=== PATIENT | male | born 1965 | race African-American/Black ===

== ENCOUNTER 2021-06-16 16:04 | Inpatient (IN) | payer SELFPAY ==
[~2021-06-16] VITALS: Ht 177.8 cm; Wt 116.1 kg
[2021-06-16] MEDS ORDERED: SODIUM CHLORIDE 0.9% 1,000 ML IV ONE (16:30)
[2021-06-16 16:51] LABS: BASOPHILS % 0.3 % (0.0-2.0); HEMATOCRIT. 40.8 % (42.0-52.0); HEMOGLOBIN. 13.8 g/dL (14.0-18.0); LYMPHOCYTES % 10.1 % (20.0-50.0); MEAN CORPUSCULAR HEMOGLOBIN 31.5 pg (28.0-32.0); MEAN CORPUSCULAR VOLUME 93.1 fL (80.0-94.0); MONOCYTES % 12.2 % (2.0-8.0); NEUTROPHILS % 77.4 % (40.0-76.0); RED BLOOD CELL COUNT 4.39 mill/uL (4.7-6.1)
[2021-06-16 16:55] LABS: CHLORIDE 100 mEq/L (98-107)
[2021-06-16 16:57] LABS: BG BASE EXCESS -0.3 mmol/L (-2.0-2.0); BG CARBOXYHEMOGLOBIN 1.6 % (0.5-1.5); BG DEOXYHEMOGLOBIN 1.6 % (0.0-5.0); BG FRACTION INSPIRED OXYGEN 100; BG HCO3 ACT 23.4 mmol/L (22.0-26.0); BG METHEMOGLOBIN 0.3 % (0.0-1.5); BG OXYGEN SATURATION 98.4 % (92.0-98.5); BG OXYHEMOGLOBIN 96.5 % (94.0-97.0); BG PCO2 35.5 mmHg (35.0-45.0); BG PH 7.437 (7.350-7.450); BG PO2 139.7 mmHg (75.0-100.0); BG SAMPLE SITE RIGHT RADIAL; BG TOTAL HEMOGLOBIN 13.5 g/dL (12.0-18.0); BG VENT MODE MASK - BIPAP
[2021-06-16] MEDS ORDERED: LORAZEPAM 2MG/ML CPJ IV ONE ×2 (17:00→17:30)
[2021-06-16] MEDS ORDERED: ASPIRIN 325MG EC TABLET PO ONE (17:30)
[2021-06-16 17:42] LABS: MEAN PLATELET VOLUME 9.7 fl (7.4-10.4); PLATELET 190 x1000/uL (130-400)
[2021-06-16] MEDS ORDERED: DEXAMETHASONE 4MG/ML 1ML VIAL IV ONE (18:30)
[2021-06-16] MEDS ORDERED: IPRATROPIUM/ALBUTEROL 0.5-3(2.5)MG/3ML NEB NEB PRN (21:00)
[2021-06-16] MEDS ORDERED: LORAZEPAM 2MG/ML CPJ IV PRN (21:00)
[2021-06-16] MEDS ORDERED: ONDANSETRON HCL 4MG/2ML INJ IV PRN (21:00)
[2021-06-16] MEDS ORDERED: CEFTRIAXONE 1 G PREMIX 50 ML IV SCH (21:00)
[2021-06-16] MEDS ORDERED: HYDROCODONE/ACETAMINOPHEN 5/325MG TABLET PO PRN (21:00)
[2021-06-16] MEDS ORDERED: MAGNESIUM/ALUMINUM HYDROXIDE/SIMETHICONE 30ML UDC PO PRN ×2 (21:00)
[2021-06-16] MEDS ORDERED: ENOXAPARIN 40MG/0.4ML SYR SUBCUT SCH (21:00)
[2021-06-16] MEDS ORDERED: DIPHENHYDRAMINE 50MG/ML VIAL IV PRN (21:00)
[2021-06-16] MEDS ORDERED: AZITHROMYCIN 500MG/250ML 250 ML IV SCH (21:30)
[2021-06-16] MEDS ORDERED: MVI, ADULT NO.1 10 ML, FOLIC ACID 1 MG, THIAMINE HCL 100 MG in SODIUM CHLORIDE 0.9% 1,0... IV SCH (22:00)
[2021-06-16] MEDS: ENOXAPARIN 30MG/0.3ML SYR SUBCUT SCH (22:13)
[2021-06-16 22:45] LABS: CREATINE KINASE MB FRACTION 2.4 ng/mL (0.5-3.6)
[2021-06-17] VITALS (39 sets, daily range): BP systolic 122–168; BP diastolic 79–124
[2021-06-17] MEDS ORDERED: NALOXONE HCL 0.4MG/ML VIAL IV PRN ×2 (02:45→03:45)
[2021-06-17 03:40] LABS: BG BASE EXCESS -1.2 mmol/L (-2.0-2.0); BG CARBOXYHEMOGLOBIN 0.6 % (0.5-1.5); BG DEOXYHEMOGLOBIN 4.5 % (0.0-5.0); BG FRACTION INSPIRED OXYGEN 100; BG HCO3 ACT 22.8 mmol/L (22.0-26.0); BG METHEMOGLOBIN 0.4 % (0.0-1.5); BG OXYGEN SATURATION 95.5 % (92.0-98.5); BG OXYHEMOGLOBIN 94.5 % (94.0-97.0); BG PCO2 35.8 mmHg (35.0-45.0); BG PH 7.421 (7.350-7.450); BG PO2 81.3 mmHg (75.0-100.0); BG SAMPLE SITE RIGHT RADIAL; BG TOTAL HEMOGLOBIN 13.6 g/dL (12.0-18.0); BG TOTAL RESPIRATORY RATE 66 b/min
[2021-06-17] MEDS: THIAMINE HCL 100MG TABLET PO SCH (08:33)
[2021-06-17] MEDS: FOLIC ACID 1MG TABLET PO SCH (08:33)
[2021-06-17] MEDS: ENOXAPARIN 30MG/0.3ML SYR SUBCUT SCH ×2 (08:34→20:44)
[2021-06-17] MEDS ORDERED: THIAMINE HCL 100MG TABLET PO SCH (09:00)
[2021-06-17] MEDS: DEXAMETHASONE 10 MG/ML VIAL IV SCH (11:17)
[2021-06-17] MEDS: MORPHINE SULFATE 2 MG/ML CPJ (NOT FOR IM USE) IV PRN (11:19)
[2021-06-17] MEDS: GUAIFENESIN 200MG/10ML SUGAR FREE UDC PO PRN ×2 (13:37→18:40)
[2021-06-17 15:42] LABS: HEMATOCRIT. 39.8 % (42.0-52.0); HEMOGLOBIN. 13.4 g/dL (14.0-18.0); MEAN CORPUSCULAR HEMOGLOBIN 31.3 pg (28.0-32.0); MEAN CORPUSCULAR VOLUME 93.1 fL (80.0-94.0); MEAN PLATELET VOLUME 9.2 fl (7.4-10.4); PLATELET 137 x1000/uL (130-400); RED BLOOD CELL COUNT 4.27 mill/uL (4.7-6.1); RED CELL DISTRIBUTION WIDTH 13.6 % (11.6-14.6)
[2021-06-17 15:55] LABS: CHLORIDE 107 mEq/L (98-107)
[2021-06-17 19:14] LABS: NUCLEATED RED BLOOD CELLS 1 /100 WBC; PLATELET ESTIMATE NORMAL
[2021-06-17] MEDS: CEFTRIAXONE 1,000 MG in DEXTROSE 5% WATER 50 ML IV SCH (20:43)
[2021-06-18] VITALS (44 sets, daily range): BP systolic 121–189; BP diastolic 51–121
[2021-06-18] MEDS: AZITHROMYCIN 500MG in DEXTROSE 5% WATER 250ML IV SCH ×2 (00:18→23:19)
[2021-06-18] MEDS: MORPHINE SULFATE 2 MG/ML CPJ (NOT FOR IM USE) IV PRN ×3 (03:42→12:54)
[2021-06-18 05:20] LABS: CHLORIDE 107 mEq/L (98-107); HEMATOCRIT. 36.9 % (42.0-52.0); HEMOGLOBIN. 12.5 g/dL (14.0-18.0); MEAN CORPUSCULAR HEMOGLOBIN 31.2 pg (28.0-32.0); MEAN CORPUSCULAR VOLUME 92.4 fL (80.0-94.0); MEAN PLATELET VOLUME 8.8 fl (7.4-10.4); PLATELET 116 x1000/uL (130-400); RED CELL DISTRIBUTION WIDTH 13.8 % (11.6-14.6)
[2021-06-18] MEDS: LORAZEPAM 2MG/ML CPJ IV PRN (05:26)
[2021-06-18 08:02] LABS: BG BASE EXCESS 0.1 mmol/L (-2.0-2.0); BG CARBOXYHEMOGLOBIN 0.3 % (0.5-1.5); BG DEOXYHEMOGLOBIN 8.4 % (0.0-5.0); BG HCO3 ACT 23.1 mmol/L (22.0-26.0); BG METHEMOGLOBIN 0.3 % (0.0-1.5); BG OXYGEN SATURATION 91.5 % (92.0-98.5); BG PCO2 32.7 mmHg (35.0-45.0); BG PH 7.467 (7.350-7.450); BG PO2 59.5 mmHg (75.0-100.0); BG SAMPLE SITE RIGHT RADIAL; BG TOTAL HEMOGLOBIN 13.6 g/dL (12.0-18.0); BG TOTAL RESPIRATORY RATE 55 b/min; BG VENT MODE MASK - BIPAP
[2021-06-18] MEDS: GUAIFENESIN 200MG/10ML SUGAR FREE UDC PO PRN (08:50)
[2021-06-18] MEDS: DEXAMETHASONE 10 MG/ML VIAL IV SCH (08:50)
[2021-06-18] MEDS: THIAMINE HCL 100MG TABLET PO SCH (08:50)
[2021-06-18] MEDS: FOLIC ACID 1MG TABLET PO SCH (08:50)
[2021-06-18] MEDS: ENOXAPARIN 30MG/0.3ML SYR SUBCUT SCH (08:52)
[2021-06-18] MEDS: AMLODIPINE 10MG TABLET PO SCH (08:56)
[2021-06-18 10:19] LABS: ATYPICAL LYMPHOCYTES 1; NUCLEATED RED BLOOD CELLS 4 /100 WBC; PLATELET ESTIMATE SLIGHTLY DECREASED
[2021-06-18 11:44] LABS: CLARITY URINE CLEAR (CLEAR); COLOR URINE DK YELLOW (YELLOW); KETONES URINE NEGATIVE (NEGATIVE); LEUKOCYTE ESTERASE URINE NEGATIVE (NEGATIVE); NITRITE URINE NEGATIVE (NEGATIVE); OCCULT BLOOD URINE 2+ (NEGATIVE); PROTEIN URINE 3+ (NEGATIVE); SPECIFIC GRAVITY URINE 1.024 (1.005-1.030)
[2021-06-18 12:00] LABS: METHADONE URINE SCREEN NEGATIVE (NEGATIVE); OPIATES URINE SCREEN PRESUMTIVE POSITIVE (NEGATIVE)
[2021-06-18 12:01] LABS: *AMPHETAMINES SCREEN URINE NEGATIVE (NEGATIVE); CANNABINOID URINE SCREEN NEGATIVE (NEGATIVE); PHENCYCLIDINE URINE SCREEN NEGATIVE (NEGATIVE)
[2021-06-18 12:02] LABS: *BENZODIAZEPINES SCREEN URINE NEGATIVE (NEGATIVE)
[2021-06-18 12:03] LABS: *BARBITURATES SCREEN URINE NEGATIVE (NEGATIVE); *COCAINE SCREEN URINE NEGATIVE (NEGATIVE)
[2021-06-18] MEDS: ZINC SULFATE 220 MG ( 50 ) CAPSULE PO SCH (17:51)
[2021-06-18] MEDS: MULTIVITAMINS,THER W-MINERALS TABLET PO SCH (17:51)
[2021-06-18] MEDS: ASCORBIC ACID 500 MG TABLET PO SCH (17:51)
[2021-06-18] MEDS: ENOXAPARIN 120MG/0.8ML SYR SUBCUT SCH (17:52)
[2021-06-18] MEDS: CEFTRIAXONE 1,000 MG in DEXTROSE 5% WATER 50 ML IV SCH (20:25)
[2021-06-18] MEDS: ACETAMINOPHEN 325MG TABLET PO PRN (20:26)
[2021-06-19] VITALS (40 sets, daily range): BP systolic 105–185; BP diastolic 60–144
[2021-06-19] MEDS: ACETAMINOPHEN 325MG TABLET PO PRN ×2 (03:44→13:58)
[2021-06-19 05:46] LABS: CHLORIDE 103 mEq/L (98-107)
[2021-06-19 05:49] LABS: BASOPHILS % 0.3 % (0.0-2.0); HEMATOCRIT. 35.8 % (42.0-52.0); HEMOGLOBIN. 12.2 g/dL (14.0-18.0); LYMPHOCYTES % 7.8 % (20.0-50.0); MEAN CORPUSCULAR HEMOGLOBIN 31.3 pg (28.0-32.0); MEAN CORPUSCULAR VOLUME 92.4 fL (80.0-94.0); MEAN PLATELET VOLUME 10.5 fl (7.4-10.4); MONOCYTES % 7.5 % (2.0-8.0); NEUTROPHILS % 84.4 % (40.0-76.0); PLATELET 116 x1000/uL (130-400); RED BLOOD CELL COUNT 3.88 mill/uL (4.7-6.1); RED CELL DISTRIBUTION WIDTH 13.6 % (11.6-14.6)
[2021-06-19] MEDS: GUAIFENESIN 200MG/10ML SUGAR FREE UDC PO PRN (07:35)
[2021-06-19] MEDS: FOLIC ACID 1MG TABLET PO SCH (09:39)
[2021-06-19] MEDS: MULTIVITAMINS,THER W-MINERALS TABLET PO SCH (09:39)
[2021-06-19] MEDS: HYDRALAZINE HCL 25MG TABLET PO SCH ×2 (09:39→20:47)
[2021-06-19] MEDS: AMLODIPINE 10MG TABLET PO SCH (09:39)
[2021-06-19] MEDS: ASCORBIC ACID 500 MG TABLET PO SCH (09:39)
[2021-06-19] MEDS: DEXAMETHASONE 10 MG/ML VIAL IV SCH (09:40)
[2021-06-19] MEDS: THIAMINE HCL 100MG TABLET PO SCH (09:40)
[2021-06-19] MEDS: ENOXAPARIN 120MG/0.8ML SYR SUBCUT SCH ×2 (09:40→20:47)
[2021-06-19] MEDS: ZINC SULFATE 220 MG ( 50 ) CAPSULE PO SCH (09:42)
[2021-06-19] MEDS: MORPHINE SULFATE 2 MG/ML CPJ (NOT FOR IM USE) IV PRN (10:39)
[2021-06-19] MEDS: CEFTRIAXONE 1,000 MG in DEXTROSE 5% WATER 50 ML IV SCH (20:46)
[2021-06-19] MEDS: AZITHROMYCIN 500MG in DEXTROSE 5% WATER 250ML IV SCH (23:36)
[2021-06-20] VITALS (48 sets, daily range): BP systolic 94–158; BP diastolic 53–100
[2021-06-20] MEDS: LORAZEPAM 2MG/ML CPJ IV PRN (03:45)
[2021-06-20] MEDS: ACETAMINOPHEN 325MG TABLET PO PRN (05:04)
[2021-06-20 05:24] LABS: HEMATOCRIT. 35.9 % (42.0-52.0); HEMOGLOBIN. 11.9 g/dL (14.0-18.0); MEAN CORPUSCULAR HEMOGLOBIN 30.8 pg (28.0-32.0); MEAN CORPUSCULAR VOLUME 92.5 fL (80.0-94.0); MEAN PLATELET VOLUME 11.2 fl (7.4-10.4); PLATELET 138 x1000/uL (130-400); RED BLOOD CELL COUNT 3.88 mill/uL (4.7-6.1); RED CELL DISTRIBUTION WIDTH 13.7 % (11.6-14.6)
[2021-06-20 05:34] LABS: INR 1.3; PROTHROMBIN TIME 13.3 sec (9.6-11.0)
[2021-06-20 05:38] LABS: CHLORIDE 106 mEq/L (98-107)
[2021-06-20] MEDS: ENOXAPARIN 120MG/0.8ML SYR SUBCUT SCH ×2 (08:21→21:26)
[2021-06-20] MEDS: HYDRALAZINE HCL 25MG TABLET PO SCH ×2 (08:22→21:27)
[2021-06-20] MEDS: THIAMINE HCL 100MG TABLET PO SCH (08:22)
[2021-06-20] MEDS: DEXAMETHASONE 10 MG/ML VIAL IV SCH (08:22)
[2021-06-20] MEDS: DOCUSATE SODIUM 100MG CAPSULE PO SCH ×2 (08:22→17:22)
[2021-06-20] MEDS: ASCORBIC ACID 500 MG TABLET PO SCH (08:22)
[2021-06-20] MEDS: MULTIVITAMINS,THER W-MINERALS TABLET PO SCH (08:22)
[2021-06-20] MEDS: AMLODIPINE 10MG TABLET PO SCH (08:23)
[2021-06-20] MEDS: FOLIC ACID 1MG TABLET PO SCH (08:23)
[2021-06-20] MEDS: ZINC SULFATE 220 MG ( 50 ) CAPSULE PO SCH (08:23)
[2021-06-20 10:17] LABS: PLATELET ESTIMATE NORMAL
[2021-06-20] MEDS: CEFTRIAXONE 1,000 MG in DEXTROSE 5% WATER 50 ML IV SCH (21:25)
[2021-06-20] MEDS: AZITHROMYCIN 500MG in DEXTROSE 5% WATER 250ML IV SCH (21:26)
[2021-06-21] VITALS (72 sets, daily range): BP systolic 73–204; BP diastolic 41–129
[2021-06-21 05:46] LABS: CHLORIDE 106 mEq/L (98-107)
[2021-06-21 05:57] LABS: HEMATOCRIT. 36.4 % (42.0-52.0); MEAN CORPUSCULAR HEMOGLOBIN 30.6 pg (28.0-32.0); MEAN CORPUSCULAR VOLUME 92.6 fL (80.0-94.0); MEAN PLATELET VOLUME 11.1 fl (7.4-10.4); PLATELET 189 x1000/uL (130-400); RED BLOOD CELL COUNT 3.93 mill/uL (4.7-6.1); RED CELL DISTRIBUTION WIDTH 13.9 % (11.6-14.6)
[2021-06-21] MEDS: ENOXAPARIN 120MG/0.8ML SYR SUBCUT SCH ×2 (08:34→23:01)
[2021-06-21] MEDS: ZINC SULFATE 220 MG ( 50 ) CAPSULE PO SCH (08:34)
[2021-06-21] MEDS: HYDRALAZINE HCL 25MG TABLET PO SCH ×2 (08:35→23:02)
[2021-06-21] MEDS: ASCORBIC ACID 500 MG TABLET PO SCH (08:35)
[2021-06-21] MEDS: DEXAMETHASONE 10 MG/ML VIAL IV SCH (08:35)
[2021-06-21] MEDS: DOCUSATE SODIUM 100MG CAPSULE PO SCH ×2 (08:35→17:00)
[2021-06-21] MEDS: THIAMINE HCL 100MG TABLET PO SCH (08:35)
[2021-06-21] MEDS: AMLODIPINE 10MG TABLET PO SCH (08:35)
[2021-06-21] MEDS: FOLIC ACID 1MG TABLET PO SCH (08:35)
[2021-06-21] MEDS: MULTIVITAMINS,THER W-MINERALS TABLET PO SCH (08:35)
[2021-06-21] MEDS ORDERED: MIDAZOLAM 100MG/100ML PMX 100 ML IV PRN (11:15)
[2021-06-21] MEDS: FENTANYL CITRATE/PF 2,500 MCG in SODIUM CHLORIDE 0.9% 200 ML IV PRN ×2 (11:50→19:23)
[2021-06-21] MEDS: MIDAZOLAM HCL 100 MG in SODIUM CHLORIDE 0.9% 100 ML IV PRN (11:51)
[2021-06-21] MEDS ORDERED: ALBUTEROL 6.7GM HFA INHALER ORI SCH (12:00)
[2021-06-21] MEDS: PROPOFOL 10MG/ML 100ML 100 ML IV SCH ×2 (12:28→14:15)
[2021-06-21] MEDS: PHENYLEPHRINE 100 MG in DEXT 5% WATER 240 ML IV PRN (15:26)
[2021-06-21 19:15] LABS: PLATELET ESTIMATE NORMAL
[2021-06-21] MEDS: CEFTRIAXONE 1,000 MG in DEXTROSE 5% WATER 50 ML IV SCH (23:02)
[2021-06-21] MEDS: AZITHROMYCIN 500MG in DEXTROSE 5% WATER 250ML IV SCH (23:02)
[2021-06-22] VITALS (95 sets, daily range): BP systolic 78–138; BP diastolic 24–81
[2021-06-22] MEDS: PHENYLEPHRINE 100 MG in DEXT 5% WATER 240 ML IV PRN ×3 (00:38→21:10)
[2021-06-22] MEDS: PROPOFOL 10MG/ML 100ML 100 ML IV SCH ×3 (02:32→10:22)
[2021-06-22] MEDS: FENTANYL CITRATE/PF 2,500 MCG in SODIUM CHLORIDE 0.9% 200 ML IV PRN ×3 (03:18→17:21)
[2021-06-22 05:53] LABS: CHLORIDE 109 mEq/L (98-107)
[2021-06-22 05:55] LABS: HEMATOCRIT. 36.3 % (42.0-52.0); HEMOGLOBIN. 11.7 g/dL (14.0-18.0); MEAN CORPUSCULAR HEMOGLOBIN 30.7 pg (28.0-32.0); MEAN CORPUSCULAR VOLUME 95.1 fL (80.0-94.0); MEAN PLATELET VOLUME 9.9 fl (7.4-10.4); PLATELET 243 x1000/uL (130-400); RED BLOOD CELL COUNT 3.82 mill/uL (4.7-6.1); RED CELL DISTRIBUTION WIDTH 14.4 % (11.6-14.6)
[2021-06-22 08:28] LABS: BG CARBOXYHEMOGLOBIN 1.1 % (0.5-1.5); BG DEOXYHEMOGLOBIN 3.1 % (0.0-5.0); BG FRACTION INSPIRED OXYGEN 100; BG HCO3 ACT 24.7 mmol/L (22.0-26.0); BG METHEMOGLOBIN 0.2 % (0.0-1.5); BG OXYGEN SATURATION 96.9 % (92.0-98.5); BG OXYHEMOGLOBIN 95.6 % (94.0-97.0); BG PCO2 50.2 mmHg (35.0-45.0); BG PO2 99.6 mmHg (75.0-100.0); BG SAMPLE SITE LEFT RADIAL; BG TOTAL HEMOGLOBIN 12.8 g/dL (12.0-18.0); BG VENT MODE VENT - AC
[2021-06-22] MEDS: AMLODIPINE 10MG TABLET PO SCH (09:00)
[2021-06-22] MEDS: HYDRALAZINE HCL 25MG TABLET PO SCH ×2 (09:00→21:08)
[2021-06-22] MEDS ORDERED: IPRATROPIUM/ALBUTEROL 0.5-3(2.5)MG/3ML NEB HHN PRN (09:30)
[2021-06-22] MEDS: DEXAMETHASONE 10 MG/ML VIAL IV SCH (09:54)
[2021-06-22] MEDS: MULTIVITAMINS,THER W-MINERALS TABLET PO SCH (09:54)
[2021-06-22] MEDS: ENOXAPARIN 120MG/0.8ML SYR SUBCUT SCH ×2 (09:54→21:08)
[2021-06-22] MEDS: FOLIC ACID 1MG TABLET PO SCH (09:54)
[2021-06-22] MEDS: DOCUSATE SODIUM 100MG CAPSULE PO SCH ×2 (09:54→17:20)
[2021-06-22] MEDS: ZINC SULFATE 220 MG ( 50 ) CAPSULE PO SCH (09:54)
[2021-06-22] MEDS: ASCORBIC ACID 500 MG TABLET PO SCH (09:54)
[2021-06-22] MEDS: THIAMINE HCL 100MG TABLET PO SCH (09:54)
[2021-06-22] MEDS: MIDAZOLAM HCL 100 MG in SODIUM CHLORIDE 0.9% 100 ML IV PRN (10:25)
[2021-06-22] MEDS ORDERED: IPRATROPIUM/ALBUTEROL 0.5-3(2.5)MG/3ML NEB HHN SCH (12:00)
[2021-06-22] MEDS ORDERED: CEFEPIME 1,000 MG in DEXTROSE 5% WATER 50 ML IV SCH ×2 (12:30→14:00)
[2021-06-22 13:04] LABS: PLATELET ESTIMATE NORMAL
[2021-06-22] MEDS: CEFEPIME 2,000 MG in DEXT 5% WATER 100 ML IV SCH (21:08)
[2021-06-22] MEDS: PROPOFOL 10MG/ML 100ML 100 ML IV PRN (22:37)
[2021-06-23] VITALS (95 sets, daily range): BP systolic 96–142; BP diastolic 53–87
[2021-06-23] MEDS: MIDAZOLAM HCL 100 MG in SODIUM CHLORIDE 0.9% 100 ML IV PRN ×2 (03:17→16:36)
[2021-06-23] MEDS: PROPOFOL 10MG/ML 100ML 100 ML IV PRN ×5 (03:18→23:07)
[2021-06-23] MEDS: FENTANYL CITRATE/PF 2,500 MCG in SODIUM CHLORIDE 0.9% 200 ML IV PRN ×3 (03:19→18:15)
[2021-06-23 05:19] LABS: HEMATOCRIT. 34.2 % (42.0-52.0); HEMOGLOBIN. 11.1 g/dL (14.0-18.0); MEAN CORPUSCULAR HEMOGLOBIN 30.5 pg (28.0-32.0); MEAN CORPUSCULAR VOLUME 94.2 fL (80.0-94.0); MEAN PLATELET VOLUME 10.3 fl (7.4-10.4); PLATELET 239 x1000/uL (130-400); RED BLOOD CELL COUNT 3.64 mill/uL (4.7-6.1); RED CELL DISTRIBUTION WIDTH 14.5 % (11.6-14.6)
[2021-06-23 05:20] LABS: CHLORIDE 110 mEq/L (98-107)
[2021-06-23] MEDS: CEFEPIME 2,000 MG in DEXT 5% WATER 100 ML IV SCH ×3 (06:50→22:07)
[2021-06-23] MEDS: ZINC SULFATE 220 MG ( 50 ) CAPSULE PO SCH (08:24)
[2021-06-23] MEDS: FOLIC ACID 1MG TABLET PO SCH (08:24)
[2021-06-23] MEDS: ASCORBIC ACID 500 MG TABLET PO SCH (08:24)
[2021-06-23] MEDS: MULTIVITAMINS,THER W-MINERALS TABLET PO SCH (08:24)
[2021-06-23] MEDS: DEXAMETHASONE 10 MG/ML VIAL IV SCH (08:24)
[2021-06-23] MEDS: DOCUSATE SODIUM 100MG CAPSULE PO SCH ×2 (08:24→17:26)
[2021-06-23] MEDS: THIAMINE HCL 100MG TABLET PO SCH (08:24)
[2021-06-23] MEDS: ENOXAPARIN 120MG/0.8ML SYR SUBCUT SCH ×2 (08:25→20:07)
[2021-06-23] MEDS: HYDRALAZINE HCL 25MG TABLET PO SCH (08:26)
[2021-06-23] MEDS: AMLODIPINE 10MG TABLET PO SCH (08:26)
[2021-06-23 09:24] LABS: NUCLEATED RED BLOOD CELLS 1 /100 WBC; PLATELET ESTIMATE NORMAL
[2021-06-23] MEDS ORDERED: IPRATROPIUM/ALBUTEROL 0.5-3(2.5)MG/3ML NEB HHN PRN (09:30)
[2021-06-23] MEDS ORDERED: BISACODYL 10MG SUPP PR PRN (09:45)
[2021-06-23 09:46] LABS: BG BASE EXCESS -0.9 mmol/L (-2.0-2.0); BG DEOXYHEMOGLOBIN 8.7 % (0.0-5.0); BG FRACTION INSPIRED OXYGEN 100; BG METHEMOGLOBIN 0.3 % (0.0-1.5); BG OXYGEN SATURATION 91.2 % (92.0-98.5); BG PCO2 46.8 mmHg (35.0-45.0); BG PH 7.346 (7.350-7.450); BG PO2 65.4 mmHg (75.0-100.0); BG SAMPLE SITE RIGHT RADIAL; BG TOTAL HEMOGLOBIN 12.4 g/dL (12.0-18.0); BG TOTAL RESPIRATORY RATE 31 b/min; BG VENT MODE VENT - AC
[2021-06-23] MEDS: PHENYLEPHRINE 100 MG in DEXT 5% WATER 240 ML IV PRN (10:31)
[2021-06-23] MEDS: IPRATROPIUM/ALBUTEROL 0.5-3(2.5)MG/3ML NEB HHN SCH ×3 (13:00→20:55)
[2021-06-23] MEDS ORDERED: LIDOCAINE HCL 1% 20ML VIAL (Pyxis) INJ ONE (14:10)
[2021-06-24] VITALS (92 sets, daily range): BP systolic 80–159; BP diastolic 47–80
[2021-06-24] MEDS: IPRATROPIUM/ALBUTEROL 0.5-3(2.5)MG/3ML NEB HHN SCH ×6 (00:45→20:21)
[2021-06-24] MEDS: MIDAZOLAM HCL 100 MG in SODIUM CHLORIDE 0.9% 100 ML IV PRN ×4 (00:45→22:29)
[2021-06-24] MEDS: PROPOFOL 10MG/ML 100ML 100 ML IV PRN ×8 (01:19→23:34)
[2021-06-24] MEDS ORDERED: ACETAMINOPHEN 650MG SUPP PR PRN (01:30)
[2021-06-24] MEDS: FENTANYL CITRATE/PF 2,500 MCG in SODIUM CHLORIDE 0.9% 200 ML IV PRN ×3 (01:31→18:09)
[2021-06-24 05:02] LABS: BG BASE EXCESS 0.4 mmol/L (-2.0-2.0); BG CARBOXYHEMOGLOBIN 0.9 % (0.5-1.5); BG DEOXYHEMOGLOBIN 10.5 % (0.0-5.0); BG FRACTION INSPIRED OXYGEN 100; BG HCO3 ACT 26.9 mmol/L (22.0-26.0); BG METHEMOGLOBIN 0.4 % (0.0-1.5); BG OXYGEN SATURATION 89.4 % (92.0-98.5); BG OXYHEMOGLOBIN 88.2 % (94.0-97.0); BG PCO2 51.6 mmHg (35.0-45.0); BG PH 7.335 (7.350-7.450); BG PO2 61.4 mmHg (75.0-100.0); BG SAMPLE SITE LEFT RADIAL; BG TOTAL HEMOGLOBIN 11.7 g/dL (12.0-18.0); BG TOTAL RESPIRATORY RATE 37 b/min; BG VENT MODE VENT - AC
[2021-06-24 05:16] LABS: HEMATOCRIT. 32.9 % (42.0-52.0); HEMOGLOBIN. 10.7 g/dL (14.0-18.0); MEAN CORPUSCULAR HEMOGLOBIN 30.6 pg (28.0-32.0); MEAN CORPUSCULAR VOLUME 93.8 fL (80.0-94.0); MEAN PLATELET VOLUME 10.6 fl (7.4-10.4); PLATELET 228 x1000/uL (130-400); RED BLOOD CELL COUNT 3.51 mill/uL (4.7-6.1); RED CELL DISTRIBUTION WIDTH 14.5 % (11.6-14.6)
[2021-06-24] MEDS ORDERED: VECURONIUM BROMIDE 10 MG/VIAL IV SCH (05:45)
[2021-06-24] MEDS: CEFEPIME 2,000 MG in DEXT 5% WATER 100 ML IV SCH ×3 (05:46→21:13)
[2021-06-24] MEDS: PHENYLEPHRINE 100 MG in DEXT 5% WATER 240 ML IV PRN (07:05)
[2021-06-24 08:07] LABS: BG BASE EXCESS -2.2 mmol/L (-2.0-2.0); BG CARBOXYHEMOGLOBIN 0.7 % (0.5-1.5); BG FRACTION INSPIRED OXYGEN 100; BG HCO3 ACT 26.6 mmol/L (22.0-26.0); BG METHEMOGLOBIN 0.7 % (0.0-1.5); BG OXYHEMOGLOBIN 96.6 % (94.0-97.0); BG PCO2 66.9 mmHg (35.0-45.0); BG PH 7.217 (7.350-7.450); BG PO2 139.6 mmHg (75.0-100.0); BG SAMPLE SITE LEFT RADIAL; BG TOTAL HEMOGLOBIN 11.7 g/dL (12.0-18.0); BG TOTAL RESPIRATORY RATE 31 b/min; BG VENT MODE VENT - AC
[2021-06-24] MEDS ORDERED: VECURONIUM BROMIDE 10 MG/VIAL IV NR (09:15)
[2021-06-24] MEDS: FOLIC ACID 1MG TABLET PO SCH (09:48)
[2021-06-24] MEDS: ENOXAPARIN 120MG/0.8ML SYR SUBCUT SCH ×2 (09:48→20:46)
[2021-06-24] MEDS: DEXAMETHASONE 10 MG/ML VIAL IV SCH (09:48)
[2021-06-24] MEDS: THIAMINE HCL 100MG TABLET PO SCH (09:49)
[2021-06-24] MEDS: DOCUSATE SODIUM 100MG CAPSULE PO SCH ×2 (09:49→17:00)
[2021-06-24] MEDS: ZINC SULFATE 220 MG ( 50 ) CAPSULE PO SCH (09:49)
[2021-06-24] MEDS: MULTIVITAMINS,THER W-MINERALS TABLET PO SCH (09:49)
[2021-06-24] MEDS: ASCORBIC ACID 500 MG TABLET PO SCH (09:49)
[2021-06-24 09:54] LABS: PLATELET ESTIMATE NORMAL
[2021-06-24 12:02] LABS: BG BASE EXCESS -2.5 mmol/L (-2.0-2.0); BG CARBOXYHEMOGLOBIN 0.5 % (0.5-1.5); BG DEOXYHEMOGLOBIN 1.7 % (0.0-5.0); BG HCO3 ACT 27.6 mmol/L (22.0-26.0); BG METHEMOGLOBIN 0.6 % (0.0-1.5); BG OXYGEN SATURATION 98.3 % (92.0-98.5); BG OXYHEMOGLOBIN 97.2 % (94.0-97.0); BG PCO2 79.6 mmHg (35.0-45.0); BG PH 7.158 (7.350-7.450); BG PO2 148.3 mmHg (75.0-100.0); BG SAMPLE SITE RIGHT FEMORAL; BG TOTAL HEMOGLOBIN 11.5 g/dL (12.0-18.0); BG VENT MODE VENT - AC
[2021-06-24 14:16] LABS: BG BASE EXCESS -1.8 mmol/L (-2.0-2.0); BG CARBOXYHEMOGLOBIN 0.2 % (0.5-1.5); BG DEOXYHEMOGLOBIN 0.7 % (0.0-5.0); BG FRACTION INSPIRED OXYGEN 100; BG HCO3 ACT 24.5 mmol/L (22.0-26.0); BG METHEMOGLOBIN 0.5 % (0.0-1.5); BG OXYGEN SATURATION 99.3 % (92.0-98.5); BG OXYHEMOGLOBIN 98.6 % (94.0-97.0); BG PCO2 48.1 mmHg (35.0-45.0); BG PH 7.324 (7.350-7.450); BG PO2 223.8 mmHg (75.0-100.0); BG SAMPLE SITE LEFT RADIAL; BG TOTAL HEMOGLOBIN 10.6 g/dL (12.0-18.0); BG TOTAL RESPIRATORY RATE 40 b/min; BG VENT MODE VENT- PRVC
[2021-06-24 14:31] LABS: CHLORIDE 110 mEq/L (98-107)
[2021-06-24] MEDS: METOCLOPRAMIDE HCL 10MG/2ML VIAL IV SCH (18:07)
[2021-06-25] VITALS (93 sets, daily range): BP systolic 87–119; BP diastolic 47–75
[2021-06-25] MEDS: IPRATROPIUM/ALBUTEROL 0.5-3(2.5)MG/3ML NEB HHN SCH ×6 (00:44→20:23)
[2021-06-25] MEDS: METOCLOPRAMIDE HCL 10MG/2ML VIAL IV SCH ×4 (01:18→17:56)
[2021-06-25] MEDS: FENTANYL CITRATE/PF 2,500 MCG in SODIUM CHLORIDE 0.9% 200 ML IV PRN ×3 (02:24→18:19)
[2021-06-25] MEDS: PROPOFOL 10MG/ML 100ML 100 ML IV PRN ×7 (02:59→23:15)
[2021-06-25] MEDS: MIDAZOLAM HCL 100 MG in SODIUM CHLORIDE 0.9% 100 ML IV PRN ×3 (05:03→20:13)
[2021-06-25] MEDS: CEFEPIME 2,000 MG in DEXT 5% WATER 100 ML IV SCH ×3 (05:28→23:14)
[2021-06-25 06:50] LABS: HEMATOCRIT. 27.6 % (42.0-52.0); HEMOGLOBIN. 9.1 g/dL (14.0-18.0); MEAN CORPUSCULAR HEMOGLOBIN 30.8 pg (28.0-32.0); MEAN CORPUSCULAR VOLUME 93.5 fL (80.0-94.0); MEAN PLATELET VOLUME 10.1 fl (7.4-10.4); PLATELET 244 x1000/uL (130-400); RED BLOOD CELL COUNT 2.95 mill/uL (4.7-6.1); RED CELL DISTRIBUTION WIDTH 14.6 % (11.6-14.6)
[2021-06-25] MEDS: PHENYLEPHRINE 100 MG in DEXT 5% WATER 240 ML IV PRN (07:00)
[2021-06-25] MEDS: ENOXAPARIN 120MG/0.8ML SYR SUBCUT SCH ×2 (08:12→21:51)
[2021-06-25] MEDS: DEXAMETHASONE 10 MG/ML VIAL IV SCH (08:13)
[2021-06-25] MEDS: FOLIC ACID 1MG TABLET PO SCH (08:14)
[2021-06-25] MEDS: ZINC SULFATE 220 MG ( 50 ) CAPSULE PO SCH (08:14)
[2021-06-25] MEDS: MULTIVITAMINS,THER W-MINERALS TABLET PO SCH (08:14)
[2021-06-25] MEDS: DOCUSATE SODIUM 100MG CAPSULE PO SCH ×2 (08:14→17:56)
[2021-06-25] MEDS: THIAMINE HCL 100MG TABLET PO SCH (08:14)
[2021-06-25] MEDS: ASCORBIC ACID 500 MG TABLET PO SCH (08:15)
[2021-06-25 09:25] LABS: BG BASE EXCESS -4.9 mmol/L (-2.0-2.0); BG CARBOXYHEMOGLOBIN 0.6 % (0.5-1.5); BG DEOXYHEMOGLOBIN 5.9 % (0.0-5.0); BG FRACTION INSPIRED OXYGEN 65; BG HCO3 ACT 21.2 mmol/L (22.0-26.0); BG METHEMOGLOBIN 0.4 % (0.0-1.5); BG OXYHEMOGLOBIN 93.1 % (94.0-97.0); BG PCO2 43.7 mmHg (35.0-45.0); BG PH 7.304 (7.350-7.450); BG PO2 76.3 mmHg (75.0-100.0); BG SAMPLE SITE LEFT RADIAL; BG TOTAL HEMOGLOBIN 10.3 g/dL (12.0-18.0); BG VENT MODE PRVC
[2021-06-25] MEDS ORDERED: BISACODYL 10MG SUPP PR PRN (09:45)
[2021-06-25] MEDS: SODIUM CHLORIDE 0.45% 1,000 ML IV SCH (10:08)
[2021-06-25] MEDS: PANTOPRAZOLE SODIUM 40 MG/VIAL IV SCH (10:46)
[2021-06-25 14:31] LABS: PLATELET ESTIMATE NORMAL
[2021-06-25] MEDS: LACTULOSE 20G/30ML UDC PO PRN (17:56)
[2021-06-26] VITALS (95 sets, daily range): BP systolic 97–126; BP diastolic 53–79
[2021-06-26] MEDS: IPRATROPIUM/ALBUTEROL 0.5-3(2.5)MG/3ML NEB HHN SCH ×6 (00:21→20:03)
[2021-06-26] MEDS: PHENYLEPHRINE 100 MG in DEXT 5% WATER 240 ML IV PRN ×2 (01:59→17:04)
[2021-06-26] MEDS: FENTANYL CITRATE/PF 2,500 MCG in SODIUM CHLORIDE 0.9% 200 ML IV PRN ×4 (02:00→23:51)
[2021-06-26] MEDS: MIDAZOLAM HCL 100 MG in SODIUM CHLORIDE 0.9% 100 ML IV PRN ×2 (02:00→10:19)
[2021-06-26] MEDS: PROPOFOL 10MG/ML 100ML 100 ML IV PRN ×7 (02:20→22:40)
[2021-06-26 05:20] LABS: BG BASE EXCESS -7.7 mmol/L (-2.0-2.0); BG CARBOXYHEMOGLOBIN 0.5 % (0.5-1.5); BG DEOXYHEMOGLOBIN 30.1 % (0.0-5.0); BG FRACTION INSPIRED OXYGEN 100; BG HCO3 ACT 19.1 mmol/L (22.0-26.0); BG METHEMOGLOBIN 0.1 % (0.0-1.5); BG OXYGEN SATURATION 69.7 % (92.0-98.5); BG OXYHEMOGLOBIN 69.3 % (94.0-97.0); BG PCO2 43.9 mmHg (35.0-45.0); BG PH 7.256 (7.350-7.450); BG PO2 39.4 mmHg (75.0-100.0); BG SAMPLE SITE RIGHT RADIAL; BG TOTAL HEMOGLOBIN 10.6 g/dL (12.0-18.0); BG VENT MODE PRVC
[2021-06-26] MEDS: METOCLOPRAMIDE HCL 10MG/2ML VIAL IV SCH ×5 (05:29→23:51)
[2021-06-26] MEDS: SODIUM CHLORIDE 0.45% 1,000 ML IV SCH (05:29)
[2021-06-26 06:47] LABS: HEMATOCRIT. 28.8 % (42.0-52.0); HEMOGLOBIN. 9.3 g/dL (14.0-18.0); MEAN CORPUSCULAR HEMOGLOBIN 30.4 pg (28.0-32.0); MEAN PLATELET VOLUME 10.1 fl (7.4-10.4); PLATELET 254 x1000/uL (130-400); RED BLOOD CELL COUNT 3.06 mill/uL (4.7-6.1); RED CELL DISTRIBUTION WIDTH 14.8 % (11.6-14.6)
[2021-06-26] MEDS: ASCORBIC ACID 500 MG TABLET PO SCH (08:24)
[2021-06-26] MEDS: LACTULOSE 20G/30ML UDC PO PRN (08:24)
[2021-06-26] MEDS: THIAMINE HCL 100MG TABLET PO SCH (08:25)
[2021-06-26] MEDS: ACETAMINOPHEN 325MG TABLET PO PRN (08:25)
[2021-06-26] MEDS: DEXAMETHASONE 10 MG/ML VIAL IV SCH (08:25)
[2021-06-26] MEDS: DOCUSATE SODIUM 100MG CAPSULE PO SCH ×2 (08:25→16:59)
[2021-06-26] MEDS: PANTOPRAZOLE SODIUM 40 MG/VIAL IV SCH (08:25)
[2021-06-26] MEDS: MULTIVITAMINS,THER W-MINERALS TABLET PO SCH (08:26)
[2021-06-26] MEDS: ENOXAPARIN 120MG/0.8ML SYR SUBCUT SCH (08:26)
[2021-06-26] MEDS: ZINC SULFATE 220 MG ( 50 ) CAPSULE PO SCH (08:26)
[2021-06-26] MEDS: FOLIC ACID 1MG TABLET PO SCH (08:28)
[2021-06-26 09:26] LABS: BG BASE EXCESS -9.5 mmol/L (-2.0-2.0); BG CARBOXYHEMOGLOBIN 0.7 % (0.5-1.5); BG DEOXYHEMOGLOBIN 5.6 % (0.0-5.0); BG FRACTION INSPIRED OXYGEN 100; BG HCO3 ACT 18.1 mmol/L (22.0-26.0); BG METHEMOGLOBIN 0.2 % (0.0-1.5); BG OXYGEN SATURATION 94.3 % (92.0-98.5); BG OXYHEMOGLOBIN 93.5 % (94.0-97.0); BG PCO2 46.6 mmHg (35.0-45.0); BG PH 7.207 (7.350-7.450); BG SAMPLE SITE RIGHT RADIAL; BG TOTAL HEMOGLOBIN 10.4 g/dL (12.0-18.0); BG VENT MODE PRVC
[2021-06-26] MEDS ORDERED: SORBITOL 70% SOLN 30ML PO NR (10:00)
[2021-06-26] MEDS ORDERED: SODIUM BICARBONATE 8.4% 1 MEQ/ML 50ML SYR IV NR ×3 (10:00→21:00)
[2021-06-26 11:25] LABS: PLATELET ESTIMATE NORMAL
[2021-06-26] MEDS: CEFEPIME 2,000 MG in DEXT 5% WATER 100 ML IV SCH (12:40)
[2021-06-26 13:40] LABS: BG BASE EXCESS -7.9 mmol/L (-2.0-2.0); BG CARBOXYHEMOGLOBIN 0.5 % (0.5-1.5); BG DEOXYHEMOGLOBIN 3.1 % (0.0-5.0); BG FRACTION INSPIRED OXYGEN 100; BG HCO3 ACT 19.6 mmol/L (22.0-26.0); BG METHEMOGLOBIN 0.6 % (0.0-1.5); BG OXYGEN SATURATION 96.9 % (92.0-98.5); BG OXYHEMOGLOBIN 95.8 % (94.0-97.0); BG PCO2 49.4 mmHg (35.0-45.0); BG PH 7.217 (7.350-7.450); BG PO2 105.2 mmHg (75.0-100.0); BG SAMPLE SITE RIGHT RADIAL; BG TOTAL HEMOGLOBIN 9.6 g/dL (12.0-18.0); BG VENT MODE PRVC
[2021-06-26] MEDS: DEXT 5%/0.45% NACL 1000ML 1,000 ML IV SCH (16:59)
[2021-06-26] MEDS: MIDAZOLAM HCL 100 MG in SODIUM CHLORIDE 0.9% 80 ML IV PRN ×2 (17:00→23:50)
[2021-06-26 20:22] LABS: BG BASE EXCESS -5.3 mmol/L (-2.0-2.0); BG CARBOXYHEMOGLOBIN 0.8 % (0.5-1.5); BG DEOXYHEMOGLOBIN 3.1 % (0.0-5.0); BG FRACTION INSPIRED OXYGEN 100; BG HCO3 ACT 21.2 mmol/L (22.0-26.0); BG METHEMOGLOBIN 0.5 % (0.0-1.5); BG OXYGEN SATURATION 96.9 % (92.0-98.5); BG OXYHEMOGLOBIN 95.6 % (94.0-97.0); BG PCO2 45.9 mmHg (35.0-45.0); BG PH 7.282 (7.350-7.450); BG PO2 100.3 mmHg (75.0-100.0); BG SAMPLE SITE LEFT RADIAL; BG TOTAL HEMOGLOBIN 9.9 g/dL (12.0-18.0); BG VENT MODE VENT - APRV
[2021-06-27] VITALS (99 sets, daily range): BP systolic 76–122; BP diastolic 49–70
[2021-06-27] MEDS: IPRATROPIUM/ALBUTEROL 0.5-3(2.5)MG/3ML NEB HHN SCH ×6 (00:15→20:29)
[2021-06-27] MEDS: PROPOFOL 10MG/ML 100ML 100 ML IV PRN ×7 (01:00→22:44)
[2021-06-27 05:46] LABS: HEMATOCRIT. 25.6 % (42.0-52.0); HEMOGLOBIN. 8.3 g/dL (14.0-18.0); MEAN CORPUSCULAR HEMOGLOBIN 30.8 pg (28.0-32.0); MEAN CORPUSCULAR VOLUME 94.5 fL (80.0-94.0); MEAN PLATELET VOLUME 10.2 fl (7.4-10.4); PLATELET 243 x1000/uL (130-400); RED CELL DISTRIBUTION WIDTH 15.4 % (11.6-14.6)
[2021-06-27] MEDS: METOCLOPRAMIDE HCL 10MG/2ML VIAL IV SCH ×3 (06:17→17:42)
[2021-06-27] MEDS: MIDAZOLAM HCL 100 MG in SODIUM CHLORIDE 0.9% 80 ML IV PRN ×3 (07:47→22:43)
[2021-06-27] MEDS: FENTANYL CITRATE/PF 2,500 MCG in SODIUM CHLORIDE 0.9% 200 ML IV PRN ×3 (07:48→22:43)
[2021-06-27 08:17] LABS: PLATELET ESTIMATE NORMAL
[2021-06-27] MEDS: ENOXAPARIN 120MG/0.8ML SYR SUBCUT SCH (08:27)
[2021-06-27] MEDS: DEXAMETHASONE 10 MG/ML VIAL IV SCH (08:27)
[2021-06-27] MEDS: ZINC SULFATE 220 MG ( 50 ) CAPSULE PO SCH (08:27)
[2021-06-27] MEDS: FOLIC ACID 1MG TABLET PO SCH (08:27)
[2021-06-27] MEDS: MULTIVITAMINS,THER W-MINERALS TABLET PO SCH (08:27)
[2021-06-27] MEDS: PANTOPRAZOLE SODIUM 40 MG/VIAL IV SCH (08:27)
[2021-06-27] MEDS: THIAMINE HCL 100MG TABLET PO SCH (08:28)
[2021-06-27] MEDS: ASCORBIC ACID 500 MG TABLET PO SCH (08:28)
[2021-06-27] MEDS: DOCUSATE SODIUM 100MG CAPSULE PO SCH ×2 (08:28→17:42)
[2021-06-27 08:57] LABS: BG BASE EXCESS -6.6 mmol/L (-2.0-2.0); BG DEOXYHEMOGLOBIN 6.3 % (0.0-5.0); BG FRACTION INSPIRED OXYGEN 100; BG HCO3 ACT 20.6 mmol/L (22.0-26.0); BG METHEMOGLOBIN 0.5 % (0.0-1.5); BG OXYGEN SATURATION 93.6 % (92.0-98.5); BG OXYHEMOGLOBIN 92.2 % (94.0-97.0); BG PH 7.232 (7.350-7.450); BG PO2 81.6 mmHg (75.0-100.0); BG SAMPLE SITE RIGHT RADIAL; BG TOTAL HEMOGLOBIN 8.3 g/dL (12.0-18.0); BG VENT MODE VENT - PRVC
[2021-06-27] MEDS ORDERED: HEPARIN 1000 UNITS/ML 10ML ONE (10:16)
[2021-06-27] MEDS ORDERED: LIDOCAINE HCL 1% 20ML VIAL (Pyxis) INJ ONE (10:16)
[2021-06-27] MEDS ORDERED: LIDOCAINE HCL 1% 30ML VIAL (10MG/ML) ONE (11:06)
[2021-06-27] MEDS ORDERED: SODIUM POLYSTYRENE SULFONATE 15 G/60 ML BOT PO SCH (12:00)
[2021-06-27] MEDS: CEFEPIME 2,000 MG in DEXT 5% WATER 100 ML IV SCH (12:16)
[2021-06-27] MEDS: DEXT 5%/0.45% NACL 1000ML 1,000 ML IV SCH (12:16)
[2021-06-27] MEDS: NA PHOS,M-B/NA PHOS,DI-BA ENEMA 118ML PR PRN ×2 (17:42→19:29)
[2021-06-27] MEDS: PHENYLEPHRINE 100 MG in DEXT 5% WATER 240 ML IV PRN (18:19)
[2021-06-28] VITALS (73 sets, daily range): BP systolic 88–140; BP diastolic 44–103
[2021-06-28] MEDS: METOCLOPRAMIDE HCL 10MG/2ML VIAL IV SCH ×4 (00:37→17:41)
[2021-06-28] MEDS: PROPOFOL 10MG/ML 100ML 100 ML IV PRN ×6 (00:53→19:01)
[2021-06-28] MEDS: IPRATROPIUM/ALBUTEROL 0.5-3(2.5)MG/3ML NEB HHN SCH ×6 (00:59→20:29)
[2021-06-28 05:48] LABS: HEMATOCRIT. 23.9 % (42.0-52.0); HEMOGLOBIN. 7.9 g/dL (14.0-18.0); MEAN CORPUSCULAR HEMOGLOBIN 31.3 pg (28.0-32.0); MEAN CORPUSCULAR VOLUME 94.9 fL (80.0-94.0); MEAN PLATELET VOLUME 9.7 fl (7.4-10.4); PLATELET 248 x1000/uL (130-400); RED BLOOD CELL COUNT 2.52 mill/uL (4.7-6.1); RED CELL DISTRIBUTION WIDTH 15.3 % (11.6-14.6)
[2021-06-28] MEDS: MIDAZOLAM HCL 100 MG in SODIUM CHLORIDE 0.9% 80 ML IV PRN ×3 (06:09→21:33)
[2021-06-28] MEDS: FENTANYL CITRATE/PF 2,500 MCG in SODIUM CHLORIDE 0.9% 200 ML IV PRN ×3 (06:11→21:34)
[2021-06-28] MEDS: DEXT 5%/0.45% NACL 1000ML 1,000 ML IV SCH (07:11)
[2021-06-28] MEDS: ASCORBIC ACID 500 MG TABLET PO SCH (09:26)
[2021-06-28] MEDS: PANTOPRAZOLE SODIUM 40 MG/VIAL IV SCH (09:26)
[2021-06-28] MEDS: DOCUSATE SODIUM 100MG CAPSULE PO SCH (09:26)
[2021-06-28] MEDS: MULTIVITAMINS,THER W-MINERALS TABLET PO SCH (09:26)
[2021-06-28] MEDS: ZINC SULFATE 220 MG ( 50 ) CAPSULE PO SCH (09:26)
[2021-06-28] MEDS: THIAMINE HCL 100MG TABLET PO SCH (09:26)
[2021-06-28] MEDS: DEXAMETHASONE 10 MG/ML VIAL IV SCH (09:27)
[2021-06-28] MEDS: ENOXAPARIN 120MG/0.8ML SYR SUBCUT SCH (09:27)
[2021-06-28] MEDS: FOLIC ACID 1MG TABLET PO SCH (09:29)
[2021-06-28 10:50] LABS: PLATELET ESTIMATE NORMAL
[2021-06-28 10:53] LABS: BG BASE EXCESS -4.1 mmol/L (-2.0-2.0); BG CARBOXYHEMOGLOBIN 1.1 % (0.5-1.5); BG FRACTION INSPIRED OXYGEN 100; BG HCO3 ACT 22.6 mmol/L (22.0-26.0); BG METHEMOGLOBIN 1.5 % (0.0-1.5); BG OXYGEN SATURATION 96.9 % (92.0-98.5); BG OXYHEMOGLOBIN 94.4 % (94.0-97.0); BG PCO2 49.9 mmHg (35.0-45.0); BG PH 7.273 (7.350-7.450); BG PO2 101.7 mmHg (75.0-100.0); BG SAMPLE SITE LEFT RADIAL; BG TOTAL RESPIRATORY RATE 44 b/min; BG VENT MODE VENT- PRVC
[2021-06-28] MEDS: CEFEPIME 2,000 MG in DEXT 5% WATER 100 ML IV SCH (13:47)
[2021-06-28 16:25] LABS: HEPATITIS B SURFACE ANTIGEN NEGATIVE
[2021-06-28] MEDS: DOCUSATE SODIUM 100MG CAPSULE NG SCH (17:41)
[2021-06-29] VITALS (98 sets, daily range): BP systolic 85–165; BP diastolic 44–88
[2021-06-29] MEDS: IPRATROPIUM/ALBUTEROL 0.5-3(2.5)MG/3ML NEB HHN SCH ×6 (00:30→20:25)
[2021-06-29] MEDS: PROPOFOL 10MG/ML 100ML 100 ML IV PRN ×6 (01:20→23:06)
[2021-06-29] MEDS: MIDAZOLAM HCL 100 MG in SODIUM CHLORIDE 0.9% 80 ML IV PRN ×3 (04:41→19:15)
[2021-06-29] MEDS: METOCLOPRAMIDE HCL 10MG/2ML VIAL IV SCH ×5 (06:22→23:56)
[2021-06-29] MEDS: DEXT 5%/0.45% NACL 1000ML 1,000 ML IV SCH ×2 (06:23→19:12)
[2021-06-29] MEDS: FENTANYL CITRATE/PF 2,500 MCG in SODIUM CHLORIDE 0.9% 200 ML IV PRN ×3 (06:23→22:29)
[2021-06-29 06:46] LABS: MEAN CORPUSCULAR HEMOGLOBIN 31.7 pg (28.0-32.0); MEAN CORPUSCULAR VOLUME 92.3 fL (80.0-94.0); MEAN PLATELET VOLUME 9.8 fl (7.4-10.4); PLATELET 252 x1000/uL (130-400); RED BLOOD CELL COUNT 2.22 mill/uL (4.7-6.1); RED CELL DISTRIBUTION WIDTH 15.5 % (11.6-14.6)
[2021-06-29 07:05] LABS: HEMATOCRIT. 20.5 % (42.0-52.0)
[2021-06-29] MEDS: PHENYLEPHRINE 100 MG in DEXT 5% WATER 240 ML IV PRN (07:44)
[2021-06-29 09:36] LABS: BG BASE EXCESS -2.8 mmol/L (-2.0-2.0); BG CARBOXYHEMOGLOBIN 1.9 % (0.5-1.5); BG DEOXYHEMOGLOBIN 1.2 % (0.0-5.0); BG FRACTION INSPIRED OXYGEN 100; BG HCO3 ACT 23.6 mmol/L (22.0-26.0); BG METHEMOGLOBIN 3.2 % (0.0-1.5); BG OXYGEN SATURATION 98.7 % (92.0-98.5); BG OXYHEMOGLOBIN 93.7 % (94.0-97.0); BG PCO2 49.4 mmHg (35.0-45.0); BG PH 7.297 (7.350-7.450); BG SAMPLE SITE LEFT RADIAL; BG TOTAL HEMOGLOBIN 7.5 g/dL (12.0-18.0); BG TOTAL RESPIRATORY RATE 41 b/min
[2021-06-29] MEDS: ZINC SULFATE 220 MG ( 50 ) CAPSULE PO SCH (10:11)
[2021-06-29] MEDS: ASCORBIC ACID 500 MG TABLET PO SCH (10:11)
[2021-06-29] MEDS: MULTIVITAMINS,THER W-MINERALS TABLET PO SCH (10:11)
[2021-06-29] MEDS: DEXAMETHASONE 10 MG/ML VIAL IV SCH (10:11)
[2021-06-29] MEDS: THIAMINE HCL 100MG TABLET PO SCH (10:11)
[2021-06-29] MEDS: DOCUSATE SODIUM 100MG CAPSULE NG SCH ×2 (10:11→18:21)
[2021-06-29] MEDS: ENOXAPARIN 120MG/0.8ML SYR SUBCUT SCH (10:12)
[2021-06-29] MEDS: PANTOPRAZOLE SODIUM 40 MG/VIAL IV SCH (10:12)
[2021-06-29] MEDS: FOLIC ACID 1MG TABLET PO SCH (10:14)
[2021-06-29] MEDS: CEFEPIME 2,000 MG in DEXT 5% WATER 100 ML IV SCH (12:06)
[2021-06-29] MEDS: VECURONIUM BROMIDE 10 MG/VIAL IV PRN ×2 (13:26→18:09)
[2021-06-29 13:29] LABS: PLATELET ESTIMATE NORMAL
[2021-06-29] MEDS: ACETAMINOPHEN 325MG TABLET PO PRN (14:06)
[2021-06-29 20:23] LABS: HEMATOCRIT 23.2 % (42.0-52.0); HEMOGLOBIN 7.8 g/dL (14.0-18.0)
[2021-06-29] MEDS ORDERED: EPOETIN ALFA-EPBX 10,000 UNIT/ML VIAL SUBCUT NR (21:00)
[2021-06-30] VITALS (97 sets, daily range): BP systolic 88–160; BP diastolic 43–97
[2021-06-30] MEDS: IPRATROPIUM/ALBUTEROL 0.5-3(2.5)MG/3ML NEB HHN SCH ×6 (00:27→20:01)
[2021-06-30] MEDS: PHENYLEPHRINE 100 MG in DEXT 5% WATER 240 ML IV PRN ×2 (02:13→15:44)
[2021-06-30] MEDS: PROPOFOL 10MG/ML 100ML 100 ML IV PRN ×7 (02:14→22:41)
[2021-06-30] MEDS: MIDAZOLAM HCL 100 MG in SODIUM CHLORIDE 0.9% 80 ML IV PRN ×3 (02:58→18:03)
[2021-06-30] MEDS: VECURONIUM BROMIDE 10 MG/VIAL IV PRN (05:20)
[2021-06-30 05:37] LABS: HEMOGLOBIN. 7.1 g/dL (14.0-18.0); MEAN CORPUSCULAR HEMOGLOBIN 30.6 pg (28.0-32.0); MEAN CORPUSCULAR VOLUME 89.2 fL (80.0-94.0); MEAN PLATELET VOLUME 9.2 fl (7.4-10.4); PLATELET 245 x1000/uL (130-400); RED BLOOD CELL COUNT 2.34 mill/uL (4.7-6.1); RED CELL DISTRIBUTION WIDTH 17.3 % (11.6-14.6)
[2021-06-30 05:41] LABS: HEMATOCRIT. 20.9 % (42.0-52.0)
[2021-06-30] MEDS: FENTANYL CITRATE/PF 2,500 MCG in SODIUM CHLORIDE 0.9% 200 ML IV PRN ×3 (06:16→22:26)
[2021-06-30] MEDS: METOCLOPRAMIDE HCL 10MG/2ML VIAL IV SCH ×3 (06:38→18:03)
[2021-06-30] MEDS ORDERED: VECURONIUM BROMIDE 10 MG/VIAL IV SCH (07:15)
[2021-06-30 07:34] LABS: NUCLEATED RED BLOOD CELLS 1 /100 WBC; PLATELET ESTIMATE NORMAL
[2021-06-30 09:08] LABS: BG FRACTION INSPIRED OXYGEN 100; BG SAMPLE SITE RIGHT RADIAL; BG VENT MODE VENT - PRVC
[2021-06-30] MEDS: DEXAMETHASONE 10 MG/ML VIAL IV SCH (09:13)
[2021-06-30] MEDS: PANTOPRAZOLE SODIUM 40 MG/VIAL IV SCH (09:13)
[2021-06-30] MEDS: ZINC SULFATE 220 MG ( 50 ) CAPSULE PO SCH (09:14)
[2021-06-30] MEDS: FOLIC ACID 1MG TABLET PO SCH (09:14)
[2021-06-30] MEDS: THIAMINE HCL 100MG TABLET PO SCH (09:14)
[2021-06-30] MEDS: MULTIVITAMINS,THER W-MINERALS TABLET PO SCH (09:14)
[2021-06-30] MEDS: ASCORBIC ACID 500 MG TABLET PO SCH (09:14)
[2021-06-30] MEDS: DOCUSATE SODIUM 100MG CAPSULE NG SCH ×2 (09:14→17:00)
[2021-06-30] MEDS: CEFEPIME 2,000 MG in DEXT 5% WATER 100 ML IV SCH (13:23)
[2021-06-30] MEDS: CALCIUM ACETATE 667MG CAPSULE PO SCH ×2 (13:28→18:03)
[2021-06-30 13:30] LABS: BG PEEP (cmH2O) 14 cmH2O; BG TIDAL VOLUME(mL) 525 mL
[2021-06-30 13:33] LABS: BG PCO2 50.7 mmHg (35.0-45.0); BG PH 7.198 (7.350-7.450); BG PO2 75.8 mmHg (75.0-100.0)
[2021-06-30 13:34] LABS: BG BASE EXCESS -8.3 mmol/L (-2.0-2.0); BG HCO3 ACT 19.3 mmol/L (22.0-26.0)
[2021-06-30 13:35] LABS: BG OXYGEN SATURATION 91.7 % (92.0-98.5); BG TOTAL HEMOGLOBIN 8.1 g/dL (12.0-18.0)
[2021-06-30 13:36] LABS: BG CARBOXYHEMOGLOBIN 3.3 % (0.5-1.5); BG METHEMOGLOBIN 2.8 % (0.0-1.5); BG OXYHEMOGLOBIN 86.1 % (94.0-97.0)
[2021-06-30 13:37] LABS: BG DEOXYHEMOGLOBIN 7.8 % (0.0-5.0)
[2021-06-30] MEDS ORDERED: MEROPENEM 1,000 MG in SODIUM CHLORIDE 0.9% 100 ML IV SCH (15:30)
[2021-06-30] MEDS: VECURONIUM BROMIDE 50 MG in DEXTROSE 5% WATER 50 ML IV PRN ×2 (15:43→22:09)
[2021-06-30] MEDS: DEXT 5%/0.45% NACL 1000ML 1,000 ML IV SCH (18:00)
[2021-06-30] MEDS ORDERED: PROPOFOL 10MG/ML 100ML 100 ML IV PRN (19:15)
[2021-06-30 23:53] LABS: HEMATOCRIT 22.7 % (42.0-52.0); HEMOGLOBIN 7.7 g/dL (14.0-18.0)
[2021-07-01] VITALS (23 sets, daily range): BP systolic 107–236; BP diastolic 20–116
[2021-07-01] MEDS: METOCLOPRAMIDE HCL 10MG/2ML VIAL IV SCH ×2 (00:02→05:53)
[2021-07-01] MEDS: IPRATROPIUM/ALBUTEROL 0.5-3(2.5)MG/3ML NEB HHN SCH ×2 (00:16→04:13)
[2021-07-01] MEDS: MIDAZOLAM HCL 100 MG in SODIUM CHLORIDE 0.9% 80 ML IV PRN (01:54)
[2021-07-01] MEDS: PROPOFOL 10MG/ML 100ML 100 ML IV PRN ×2 (02:55→05:54)
[2021-07-01] MEDS: VECURONIUM BROMIDE 50 MG in DEXTROSE 5% WATER 50 ML IV PRN (05:53)
[2021-07-01] MEDS: FENTANYL CITRATE/PF 2,500 MCG in SODIUM CHLORIDE 0.9% 200 ML IV PRN (06:07)
[2021-07-01] MEDS ORDERED: NOREPINEPHRINE 8MG/250ML PMX 250 ML IV PRN (07:00)
[2021-07-01] MEDS ORDERED: DOPAMINE 400MG/250ML PREMIX 250 ML IV PRN (07:00)
[2021-07-01] MEDS ORDERED: VASOPRESSIN 20 UNIT in SODIUM CHLORIDE 0.9% 99 ML IV PRN (07:00)
[2021-07-01 07:03] LABS: BG BASE EXCESS -12.3 mmol/L (-2.0-2.0); BG CARBOXYHEMOGLOBIN 4.3 % (0.5-1.5); BG DEOXYHEMOGLOBIN 35.9 % (0.0-5.0); BG FRACTION INSPIRED OXYGEN 100; BG HCO3 ACT 17.7 mmol/L (22.0-26.0); BG METHEMOGLOBIN 1.5 % (0.0-1.5); BG OXYGEN SATURATION 61.9 % (92.0-98.5); BG OXYHEMOGLOBIN 58.3 % (94.0-97.0); BG PCO2 63.7 mmHg (35.0-45.0); BG PH 7.062 (7.350-7.450); BG PO2 40.9 mmHg (75.0-100.0); BG SAMPLE SITE RIGHT RADIAL; BG TOTAL HEMOGLOBIN 9.3 g/dL (12.0-18.0); BG TOTAL RESPIRATORY RATE 40 b/min; BG VENT MODE VENT - APRV
[2021-07-01] MEDS ORDERED: DOPAMINE 800MG PREMIX (DOUBLE) 250 ML IV ONE (07:06)
[2021-07-01] MEDS ORDERED: NOREPINEPHRINE 8 MG in DEXT 5% WATER 242 ML IV PRN (07:15)
[2021-07-01 07:23] LABS: HEMATOCRIT. 22.1 % (42.0-52.0); HEMOGLOBIN. 7.4 g/dL (14.0-18.0); MEAN CORPUSCULAR HEMOGLOBIN 30.4 pg (28.0-32.0); MEAN CORPUSCULAR VOLUME 90.5 fL (80.0-94.0); MEAN PLATELET VOLUME 9.5 fl (7.4-10.4); PLATELET 266 x1000/uL (130-400); RED BLOOD CELL COUNT 2.44 mill/uL (4.7-6.1); RED CELL DISTRIBUTION WIDTH 17.8 % (11.6-14.6)
[2021-07-01] MEDS ORDERED: SODIUM BICARBONATE 8.4% 1 MEQ/ML 50ML SYR IV ONE (08:55)
[2021-07-01] MEDS ORDERED: ATROPINE SULFATE 1MG/10ML SYR ONE (08:55)
[2021-07-01] MEDS ORDERED: EPINEPHRINE 0.1MG/ML (1:10,000) 10ML SYR ONE (08:55)
[2021-07-01] MEDS ORDERED: CALCIUM CHLORIDE 1GM/10ML SYR IV ONE (08:55)
[2021-07-01 10:06] LABS: NUCLEATED RED BLOOD CELLS 2 /100 WBC
[2021-07-01 10:07] LABS: PLATELET ESTIMATE NORMAL
== END 2021-07-01 07:10 | DRG 720 ==
LOC: ER 16:04 → EDBEDREQSVC 18:47 → EDBEDREQ 18:47 → MICUSO 18:48 → EDBEDREQ 18:50 → MICUSO 06-17 02:29 → CVICU 06-24 04:15
PROVIDERS: ADMIT Internal Medicine Nephrology; ATTEND Internal Medicine Nephrology
PROC: 5A09457 Assistance with Respiratory Ventilation, 24-96 Consecutive Hours, Continuous Positive Airway Pressure (ICD-10-PCS; 2021-06-16)
PROC: 5A09357 Assistance with Respiratory Ventilation, Less than 24 Consecutive Hours, Continuous Positive Airway Pressure (ICD-10-PCS; 2021-06-21)
PROC: 0BH17EZ Insertion of Endotracheal Airway into Trachea, Via Natural or Artificial Opening (ICD-10-PCS; 2021-06-21)
PROC: 5A1955Z Respiratory Ventilation, Greater than 96 Consecutive Hours (ICD-10-PCS; 2021-06-21)
PROC: 02HV33Z Insertion of Infusion Device into Superior Vena Cava, Percutaneous Approach (ICD-10-PCS; 2021-06-23)
PROC: B548ZZA Ultrasonography of Superior Vena Cava, Guidance (ICD-10-PCS; 2021-06-23)
PROC: 02HV33Z Insertion of Infusion Device into Superior Vena Cava, Percutaneous Approach (ICD-10-PCS; 2021-06-27)
PROC: B518ZZA Fluoroscopy of Superior Vena Cava, Guidance (ICD-10-PCS; 2021-06-27)
PROC: B548ZZA Ultrasonography of Superior Vena Cava, Guidance (ICD-10-PCS; 2021-06-27)
PROC: 5A1D70Z Performance of Urinary Filtration, Intermittent, Less than 6 Hours Per Day (ICD-10-PCS; 2021-06-27)
PROC: 5A1D70Z Performance of Urinary Filtration, Intermittent, Less than 6 Hours Per Day (ICD-10-PCS; 2021-06-28)
PROC: 30233N1 Transfusion of Nonautologous Red Blood Cells into Peripheral Vein, Percutaneous Approach (ICD-10-PCS; 2021-06-30)
PROC: 5A12012 Performance of Cardiac Output, Single, Manual (ICD-10-PCS; principal; 2021-07-01)
DX: A41.89 Other specified sepsis (principal); N17.0 Acute kidney failure with tubular necrosis; J12.82 Pneumonia due to coronavirus disease 2019; J80 Acute respiratory distress syndrome; U07.1 COVID-19; E44.0 Moderate protein-calorie malnutrition; I82.413 Acute embolism and thrombosis of femoral vein, bilateral; R74.01 Elevation of levels of liver transaminase levels; E87.1 Hypo-osmolality and hyponatremia; D72.810 Lymphocytopenia; R65.20 Severe sepsis without septic shock; D64.9 Anemia, unspecified; E78.1 Pure hyperglyceridemia; E87.5 Hyperkalemia; I46.9 Cardiac arrest, cause unspecified; Z68.36 Body mass index [BMI] 36.0-36.9, adult
CPT/HCPCS: 31500; 36415; 36556; 36600; 71045; 74018; 76937; 80048; 80053; 80305; 81003; 82270; 82375; 82553; 82728; 82805; 82962; 83036; 83615; 83735; 83880; 84100; 84145; 84478; 84484; 85014; 85018; 85025; 85379; 86140; 86705; 86709; 86803; 86850; 86900; 86920; 87070; 87077; 87186; 87340; 87426; 93005; 93306; 93970; 94002; 94003; 94640; 94660; 99291; A6261; C1725; C1752; C1887; C1893; C9113; C9803; J0456; J0461; J0692; J0696; J0885; J1100; J1200; J1265; J1644; J1650; J2060; J2185; J2250; J2270; J2370; J2704; J2765; J3010; J3411; J3490; J7030; J7040; J7042; J7050; J7060; L8514; P9016; U0003; U0005